=== PATIENT | female | born 1975 | race African-American/Black ===

== ENCOUNTER 2017-01-30 11:06 | Outpatient (CLI) | payer OTHER | END 2017-01-30 11:07 | disposition home or self-care (01) | LOC: WCC 11:06 | PROVIDERS: ATTEND Family Medicine | DX: L97.829 Non-pressure chronic ulcer of other part of left lower leg with unspecified severity (principal); L97.819 Non-pressure chronic ulcer of other part of right lower leg with unspecified severity | CPT/HCPCS: 36416; 97605 ==

== ENCOUNTER 2017-02-08 11:05 | Outpatient (CLI) | payer OTHER ==
[2017-02-08] MEDS ORDERED: Sodium Chloride 0.9% 15 ML NEB ONE (11:11)
== END 2017-02-08 11:06 | disposition home or self-care (01) ==
LOC: WCC 11:05
PROVIDERS: ATTEND Podiatrist Foot & Ankle Surgery
DX: L97.919 Non-pressure chronic ulcer of unspecified part of right lower leg with unspecified severity (principal); L97.929 Non-pressure chronic ulcer of unspecified part of left lower leg with unspecified severity
CPT/HCPCS: 36416; 97605; A4218

== ENCOUNTER 2017-02-10 10:30 | Outpatient (CLI) | payer OTHER ==
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
== END 2017-02-10 10:31 | disposition home or self-care (01) ==
LOC: WCC 10:30
PROVIDERS: ATTEND Podiatrist Foot & Ankle Surgery
DX: L97.419 Non-pressure chronic ulcer of right heel and midfoot with unspecified severity (principal); Z89.432 Acquired absence of left foot
CPT/HCPCS: 11042; 36416

== ENCOUNTER 2017-02-13 10:37 | Outpatient (CLI) | payer OTHER ==
[2017-02-13] MEDS ORDERED: Sodium Chloride 0.9% 15 ML NEB ONE (17:01)
== END 2017-02-13 10:38 | disposition home or self-care (01) ==
LOC: WCC 10:37
PROVIDERS: ATTEND Podiatrist Foot & Ankle Surgery
DX: L97.919 Non-pressure chronic ulcer of unspecified part of right lower leg with unspecified severity (principal); L97.929 Non-pressure chronic ulcer of unspecified part of left lower leg with unspecified severity
CPT/HCPCS: 36416; 97606; A4218

== ENCOUNTER 2017-02-15 10:46 | Outpatient (CLI) | payer OTHER ==
[2017-02-15] MEDS ORDERED: Sodium Chloride 0.9% 15 ML NEB ONE (16:23)
== END 2017-02-15 10:47 | disposition home or self-care (01) ==
LOC: WCC 10:46
PROVIDERS: ATTEND Podiatrist Foot & Ankle Surgery
DX: L97.829 Non-pressure chronic ulcer of other part of left lower leg with unspecified severity (principal); L97.819 Non-pressure chronic ulcer of other part of right lower leg with unspecified severity
CPT/HCPCS: 97606; A4218

== ENCOUNTER 2017-02-17 10:11 | Outpatient (CLI) | payer OTHER ==
--- NOTE | 2017-02-17 11:38 | PRG ---
DATE OF SERVICE: 02/17/2017 SUBJECTIVE: The patient follows up for bilateral foot wounds, status post left foot partial fifth r ay amputation, having a wound VAC on left foot 3 times a week at 125 mmHg negative pressure, continu ous therapy, doing Promogran to the right foot, although she presents today with the wound open to t he air. Denies any nausea, vomiting, fevers or chills. OBJECTIVE: Ulceration, left foot fifth met amputation site measuring 4.5 cm x 3.0 cm x 0.8 cm, gran ular wound base does not probe to bone. No periwound erythema or edema or warmth. Right foot plant ar ulceration measures 1 cm x 1.4 cm x 0.2 cm, 100% granular wound base. No periwound erythema, bety ma or warmth. Does not probe to deeper tissues or bone. ASSESSMENT: 1. 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 2. Diabetes with peripheral neuropathy. PLAN: 1. Full thickness debridement of both wounds utilizing dermal curet down to a bleeding granular wou nd base, debriding at the subcutaneous tissue layer removing all slough and biofilm from the wound b ases. 2. We are going to get her insurance authorization for EpiFix skin substitute. We will start hopef ully next week on the right foot and the left foot once we decide the wound VAC is no longer necessa ry. 3. We are going to reapply the wound VAC to the left foot, it will be changed 2 times before I see her next Monday. Continuous therapy at 125 mmHg. 4. We are going to do daily Promogran dressing right foot. Discussed with her not leaving this ope n to air at any time. 5. I also had a long discussion with her about her blood sugar control. Her blood sugars have been elevated every time she has come in here and I explained the risks with this and also the detriment to her healing potential if she does not get this under control. She seemed to understand and is g oing to try and work on that. She will follow up with me in 1 week.
[2017-02-17] MEDS ORDERED: Sodium Chloride 0.9% 15 ML NEB ONE (13:43)
== END 2017-02-17 10:12 | disposition home or self-care (01) ==
LOC: WCC 10:11
PROVIDERS: ATTEND Podiatrist Foot & Ankle Surgery
DX: T87.89 Other complications of amputation stump (principal); E11.621 Type 2 diabetes mellitus with foot ulcer; L97.429 Non-pressure chronic ulcer of left heel and midfoot with unspecified severity; L97.419 Non-pressure chronic ulcer of right heel and midfoot with unspecified severity; E11.51 Type 2 diabetes mellitus with diabetic peripheral angiopathy without gangrene
CPT/HCPCS: 11042; 11045; A4218

== ENCOUNTER 2017-02-20 10:43 | Outpatient (CLI) | payer OTHER | END 2017-02-20 10:44 | disposition home or self-care (01) | LOC: WCC 10:43 | PROVIDERS: ATTEND Podiatrist Foot & Ankle Surgery | DX: L97.919 Non-pressure chronic ulcer of unspecified part of right lower leg with unspecified severity (principal); L97.929 Non-pressure chronic ulcer of unspecified part of left lower leg with unspecified severity | CPT/HCPCS: 97605 ==

== ENCOUNTER 2017-02-22 10:42 | Outpatient (CLI) | payer OTHER ==
[2017-02-22] MEDS ORDERED: Lidocaine 2% Jelly 5 ML TUBE ONE (17:26)
== END 2017-02-22 10:43 | disposition home or self-care (01) ==
LOC: WCC 10:42
PROVIDERS: ATTEND Podiatrist Foot & Ankle Surgery
DX: L97.919 Non-pressure chronic ulcer of unspecified part of right lower leg with unspecified severity (principal); L97.929 Non-pressure chronic ulcer of unspecified part of left lower leg with unspecified severity
CPT/HCPCS: 97605

== ENCOUNTER 2017-02-24 10:17 | Outpatient (CLI) | payer OTHER ==
--- NOTE | 2017-02-24 11:06 | PRG ---
DATE OF SERVICE: 02/24/2017 SUBJECTIVE: This is a 41-year-old female returns today for followup of bilateral ulcerations and st atus post left fifth partial ray amputation. She has been doing wound VAC changes twice a week on t he left side and daily Promogran dressing changes on the right side. Denies any problems with wound VAC. She says she has been making some changes with her diet. Her blood sugar has improved, this morning was 102. PHYSICAL EXAMINATION: Ulceration, plantar right foot. A large amount of hyperkeratotic buildup surr ounding the wound which was removed. On removal the ulceration measures 1.4 cm x 1.9 cm x 0.1 cm of depth. It has 100% granular wound base. No periwound erythema, edema, or warmth or other signs of bacterial infection. Left foot fifth ray amputation site wound measures 5.5 cm x 3.2 cm x 0.7 cm, 100% granular wound base. There is some mild periwound maceration. No erythema, edema, or warmth o r other signs of bacterial infection. ASSESSMENT: 1. Non-pressure chronic ulceration of the plantar aspect of the right foot. 2. Status post left partial fifth ray amputation left open to heel secondary with wound VAC. 3. Diabetes with peripheral neuropathy. PLAN: 1. Full thickness debridement of both wounds utilizing dermal curet, removing all nonviable tissue down to the subcutaneous tissue layer. 2. We are going to continue with VAC application on the left foot 2 times a week, changes at 125 mm of continuous therapy. Right foot callus was also pared away from the periwound area. We will con tinue with daily Promogran dressing changes on this foot. 3. We discussed diabetic shoes and she is going to follow up with me in my main clinic so that we c an get this process started for her. 4. She will follow up with me in 2 weeks for reevaluation and debridement.
[2017-02-24] MEDS ORDERED: Sodium Chloride 0.9% 15 ML NEB ONE (17:29)
== END 2017-02-24 10:18 | disposition home or self-care (01) ==
LOC: WCC 10:17
PROVIDERS: ATTEND Podiatrist Foot & Ankle Surgery
DX: E11.621 Type 2 diabetes mellitus with foot ulcer (principal); L97.419 Non-pressure chronic ulcer of right heel and midfoot with unspecified severity; E11.42 Type 2 diabetes mellitus with diabetic polyneuropathy
CPT/HCPCS: 11042; 11045; A4218

== ENCOUNTER 2017-02-27 10:48 | Outpatient (CLI) | payer OTHER ==
[2017-02-27] MEDS ORDERED: Sodium Chloride 0.9% 15 ML NEB ONE (17:24)
== END 2017-02-27 10:49 | disposition home or self-care (01) ==
LOC: WCC 10:48
PROVIDERS: ATTEND Podiatrist Foot & Ankle Surgery
DX: L97.919 Non-pressure chronic ulcer of unspecified part of right lower leg with unspecified severity (principal); L97.929 Non-pressure chronic ulcer of unspecified part of left lower leg with unspecified severity
CPT/HCPCS: 97605; A4218

== ENCOUNTER 2017-03-02 10:42 | Outpatient (CLI) | payer OTHER | END 2017-03-02 10:43 | disposition home or self-care (01) | LOC: WCC 10:42 | PROVIDERS: ATTEND Podiatrist Foot & Ankle Surgery | DX: L97.929 Non-pressure chronic ulcer of unspecified part of left lower leg with unspecified severity (principal); L97.919 Non-pressure chronic ulcer of unspecified part of right lower leg with unspecified severity | CPT/HCPCS: 97605 ==

== ENCOUNTER 2017-03-10 10:00 | Outpatient (CLI) | payer OTHER ==
--- NOTE | 2017-03-06 15:57 | PRG ---
DATE OF SERVICE: 03/06/2017 SUBJECTIVE: Ms. Cristina Metcalf is followed by Dr. Erick Nj, [facility]. She is also followed Dr. Flor Maldonado for diabetes. It is reported that she had a hemoglobin A1c of 14 in November. For this reason, graft to her foot was denied by her insurance because of a poorly controlled diabetes. She has an appointment to see Dr. Maldonado next week. She is both on insulin and Januvia. She is status post amputation of her left fifth toe and metatarsal. She has an open granulating wound in h er left foot. There is no infection. She is having a wound VAC. 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 She is hoping to return to work on 03/17. I am seeing her down wound care and followup for amputation. There is no evidence of infection. The wound is granulating and healthy. Wound VAC is reapplied. Part of her granulated wound extends to the plantar aspect of her foot. I have talked to her about Dr. Nj's plans to possibly place a graft and informed her that her insurance will not cover that and thus her hemoglobin A1c reflects better control. The patient reports that her Ac cu-Cheks at home have been running [id number] or more. She states she ate leftovers last night account ing for her high Accu-Chek. I have told her that she continue the wound VAC until next week in a fe w days prior to her starting her job they can discontinue the wound VAC. I have written a prescript ion to repeat her hemoglobin A1c and basic metabolic profile today. This will help assess her as to whether she is ready for graft to facilitate healing of her left diabetic foot wound. The patient has an appointment to see me in 2 days and she was advised to change that appointment for about 2 we eks. We will see how her hemoglobin A1c and base met looks as far as whether it is likely she could have a graft to facilitate wound healing.
== END 2017-03-10 10:01 | disposition home or self-care (01) ==
LOC: WCC 10:00
PROVIDERS: ATTEND Podiatrist Foot & Ankle Surgery
DX: E11.621 Type 2 diabetes mellitus with foot ulcer (principal); E11.65 Type 2 diabetes mellitus with hyperglycemia; L97.529 Non-pressure chronic ulcer of other part of left foot with unspecified severity; Z79.4 Long term (current) use of insulin; Z89.422 Acquired absence of other left toe(s)
CPT/HCPCS: 97605

== ENCOUNTER 2017-03-17 08:12 | Outpatient (CLI) | payer OTHER ==
--- NOTE | 2017-03-17 09:07 | PRG ---
DATE OF SERVICE: 03/17/2017 SUBJECTIVE: This is a 41-year-old female returns today for followup of bilateral plantar foot ulcer ations, status post left partial fifth ray amputation. Removed the wound VAC last week, she started back to work and she has had no problems and started Promogran dressing changes, no nausea, vomitin g, fevers or chills. PHYSICAL EXAMINATION: Ulceration to the right foot has healed completely, paring away some hyperker atotic tissue, there was no underlying ulceration. Ulceration on the left foot measures 2.7 cm x 3. 9 cm x 0.2 cm deep, 100% granulation tissue. No periwound erythema, edema, or warmth or other signs of bacterial infection. ASSESSMENT: Non-pressure chronic ulceration to the left foot, status post left fifth digit amputati on. PLAN: Full thickness debridement utilizing dermal curette of the subcutaneous tissue layer down to a bleeding granular wound base, removing all biofilm and nonviable tissue from within the wound base . We will continue with daily Promogran dressing changes and she will follow up with me in 1 week.
[2017-03-17] MEDS ORDERED: Sodium Chloride 0.9% 15 ML NEB ONE (17:12)
== END 2017-03-17 08:13 | disposition home or self-care (01) ==
LOC: WCC 08:12
PROVIDERS: ATTEND Podiatrist Foot & Ankle Surgery
DX: L97.529 Non-pressure chronic ulcer of other part of left foot with unspecified severity (principal); Z89.422 Acquired absence of other left toe(s)
CPT/HCPCS: 11042; A4218

== ENCOUNTER 2017-03-24 08:18 | Outpatient (CLI) | payer OTHER ==
--- NOTE | 2017-03-24 09:32 | PRG ---
DATE OF SERVICE: 03/24/2017 SUBJECTIVE: This is a 41-year-old female returns today for followup left foot amputation site with ulceration. She has been doing well since last visit and has continued to do Promogran dressing nik nges daily and has had no problems with the wound. Denies nausea, vomiting, fevers or chills. PHYSICAL EXAMINATION: Right foot wound remains healed. Left foot ulceration over the 5th digit amp utation site measures 1.7 cm x 3.7 cm x 0.2 cm of depth, 90% granulation tissue, 10% slough, minimal drainage. Does not probe to deeper tendons or bone. No periwound erythema, edema or warmth. ASSESSMENT: 1. Non-pressure chronic ulceration to left foot, status post fifth digit amputation. 2. Type 2 diabetes with peripheral neuropathy. PLAN: 1. Full thickness debridement of the subcutaneous tissue layer removing all biofilm and nonviable t issue from the wound base down to a bleeding granular wound base with dermal curette. 2. Continue with Promogran dressing changes on a daily basis. 3. She will follow up in 1 week.
[2017-03-24] MEDS ORDERED: Sodium Chloride 0.9% 15 ML NEB ONE (10:57)
== END 2017-03-24 08:19 | disposition home or self-care (01) ==
LOC: WCC 08:18
PROVIDERS: ATTEND Podiatrist Foot & Ankle Surgery
DX: T81.89XD Other complications of procedures, not elsewhere classified, subsequent encounter (principal); L97.529 Non-pressure chronic ulcer of other part of left foot with unspecified severity; E11.42 Type 2 diabetes mellitus with diabetic polyneuropathy; Z89.422 Acquired absence of other left toe(s)
CPT/HCPCS: 11042; A4218

== ENCOUNTER 2017-03-31 08:05 | Outpatient (CLI) | payer OTHER ==
--- NOTE | 2017-03-31 09:55 | PRG ---
DATE OF SERVICE: 03/31/2017 SUBJECTIVE: This is a 41-year-old female returns today for followup left foot ulcerations, status po st left fifth partial ray amputation. She has been doing well since last visit, has been doing Promo gran, gauze and tape dressing changes daily. Denied nausea, vomiting, fevers or chills. PHYSICAL EXAMINATION: Ulceration left fifth toe stump measuring 1.7 cm x 2.9 cm x 0.2 cm of depth, 1 00% granular wound base. No periwound erythema, edema or warmth. No drainage. It does not probe to bone or tendon. ASSESSMENT: 1. Non-pressure chronic ulceration to left foot, status post left partial fifth ray amputation. 2. Diabetes with peripheral neuropathy. PLAN: 1. Full thickness debridement of the subcutaneous tissue layer down to a bleeding granular wound bas e, removing all biofilm and nonviable tissue from the wound. 2. We applied a Promogran, gauze and tape dressing which she will continue changing daily and follow up with me in 2 weeks.
[2017-03-31] MEDS ORDERED: Sodium Chloride 0.9% 15 ML NEB ONE (14:54)
== END 2017-03-31 08:06 | disposition home or self-care (01) ==
LOC: WCC 08:05
PROVIDERS: ATTEND Podiatrist Foot & Ankle Surgery
DX: E11.621 Type 2 diabetes mellitus with foot ulcer (principal); L97.529 Non-pressure chronic ulcer of other part of left foot with unspecified severity; E11.42 Type 2 diabetes mellitus with diabetic polyneuropathy; Z89.422 Acquired absence of other left toe(s)
CPT/HCPCS: A4218

== ENCOUNTER 2017-04-14 07:58 | Outpatient (CLI) | payer OTHER ==
--- NOTE | 2017-04-14 08:54 | PRG ---
DATE OF SERVICE: 04/14/2017 SUBJECTIVE: This is a 41-year-old female returns today status post left foot fifth amputation, doing well with Promogran, gauze and tape dressing changes on a daily basis. She thinks it has been impro ving. She has been wearing compression stocking for her swelling. Denies nausea, vomiting, fevers o r chills. PHYSICAL EXAMINATION: Ulceration left amputation site at the fifth metatarsal head area measuring 1. 5 cm x 1.5 cm x 0.1 cm in depth. There is a 90% granular base with 10% epithelium. Minimal drainage , no periwound erythema, edema or warmth. ASSESSMENT: 1. Non-pressure chronic ulceration to the left foot, improving in size. 2. Type 2 diabetes with peripheral neuropathy. PLAN: 1. Full thickness debridement of subcutaneous tissue layer down to a bleeding granular wound base, r emoving all biofilm and nonviable tissue from the wound base with dermal curet. The patient tolerate d the procedure well. 2. We will continue with Promogran, gauze and tape dressing changes as her wound continues to improv e. She will follow up with me in 1 week.
[2017-04-14] MEDS ORDERED: Sodium Chloride 0.9% 15 ML NEB ONE (17:18)
== END 2017-04-14 07:59 | disposition home or self-care (01) ==
LOC: WCC 07:58
PROVIDERS: ATTEND Podiatrist Foot & Ankle Surgery
DX: E11.621 Type 2 diabetes mellitus with foot ulcer (principal); L97.529 Non-pressure chronic ulcer of other part of left foot with unspecified severity; E11.42 Type 2 diabetes mellitus with diabetic polyneuropathy
CPT/HCPCS: 11042; A4218

== ENCOUNTER 2017-04-21 07:59 | Outpatient (CLI) | payer OTHER ==
--- NOTE | 2017-04-21 10:54 | PRG ---
DATE OF SERVICE: 04/21/2017 SUBJECTIVE: A 41-year-old female returns today for follow up ulceration left foot, fifth amputation. She has been doing well with Promogran and bandage, secondary gauze bandage changes. Denies nausea , vomiting, fever or chills. PHYSICAL EXAMINATION: Ulceration to the lateral aspect of the left forefoot measures 0.9 cm x 1.1 cm x 0.2 cm depth with 90% granulation tissue. No periwound erythema, edema or warmth. ASSESSMENT: Non-pressure chronic ulceration status post left fifth digit amputation. Continues to taty with conservative wound care. PLAN: 1. Full-thickness debridement of the subcutaneous tissue layer with dermal curet with removal of all biofilm and nonviable tissue from the wound base. 2. Continue with Promogran and secondary gauze and tape dressing changes on a daily basis and she wi ll follow up with me in 1 week.
== END 2017-04-21 08:00 | disposition home or self-care (01) ==
LOC: WCC 07:59
PROVIDERS: ATTEND Podiatrist Foot & Ankle Surgery
DX: L97.529 Non-pressure chronic ulcer of other part of left foot with unspecified severity (principal); Z89.422 Acquired absence of other left toe(s)

== ENCOUNTER 2017-12-29 11:50 | Emergency (ER) | payer BC ==
[2017-12-29] MEDS ORDERED: Ondansetron HCl/PF 4 MG/2 ML Vial ONE ×2 (12:13→14:29)
[2017-12-29 12:49] LABS: BHCG - Serum Negative (NEGATIVE); Pregs Control Background? CLEAR/WHITE (CLR/WHITE); Pregs Control Bar Appear? YES (CONTROL BAR)
[2017-12-29 12:58] LABS: Bilirubin Negative (Negative); Blood, Urine Large (Negative); Clarity Cloudy (Clear); Glucose, Urine (Dipstick) 500 mg/dL (Negative); Leukocyte Negative (Negative); Nitrite Negative (Negative); Protein, Urine (Dipstick) > or equal to 300 mg/dL (Neg-Trace); Urobilinogen 0.2 mg/dL (0.2-1.0)
[2017-12-29 12:58] LABS: CKMB 0.6 ng/mL (0-6.6); Hemoglobin 8.3 g/dL (12.0-16.0); Mean Corpuscular HGB CONC 31.3 g/dL (32.0-36.0); Mean Corpuscular Hemoglobin 22.9 pg (27.0-31.0); Mean Platelet Volume 6.9 fL (7.4-10.4); Platelet Count 391 thou/uL (130-400); RBC Distribution Width 13.1 % (11.5-14.5); Red Blood Cell (RBC) Count 3.64 mill/uL (4.20-5.40); Troponin I Less than 0.010 ng/mL (< 0.028); White Blood Cell (WBC) Count 12.4 thou/uL (4.8-10.8)
[2017-12-29 13:05] LABS: Bacteria/HPF Rare-Few HPF (None Seen); RBC/HPF GREATER THAN 50-TNTC HPF (0-3); Squamous Epithelial 0-3 HPF (0-3); WBC/HPF 0-3 HPF (0-3)
[2017-12-29 13:13] LABS: Hypochromia SLIGHT = 6-15 cells (100X) (0-5/hpf); MDiff Complete? YES; Microcytosis SLIGHT = 6-15 cells (100X) (0-5/hpf); PLT Morphology Comment Appears Adequate
--- NOTE | 2017-12-29 13:25 | RAD ---
FRONTAL VIEW CHEST: INDICATION: Nausea and vomiting. FINDINGS: The cardiac silhouette is accentuated by portable technique. There is hazy density of the inferior l eft chest. Subtle reticulonodular density is seen at the lateral upper mid right lung zone. There i s mild prominence of the pulmonary vasculature. IMPRESSION: 1. Accentuated cardiac silhouette and mild prominence of pulmonary vasculature may relate to fluid s tatus/edema. Correlate clinically. 2. Patchy density at the left lower lung zone which a subtle area of developing pneumonia is not exc luded. 3. Reticulonodularity at the lateral right upper to mid lung zone is present, nonspecific. This cou ld relate to an area of atypical infection or alternatively superimposed nodularity from the body wal l. Underlying solitary pulmonary nodule not entirely excluded. Followup imaging to confirm resoluti on is necessary, and should the finding persist, then CT thorax would be warranted. POS: DANIELA
[2017-12-29 13:30] LABS: ALT (SGPT) 18 U/L (8-55); AST (SGOT) 17 U/L (5-34); Albumin 3.5 g/dL (3.5-5.0); Alkaline Phosphatase 122 U/L (40-150); Anion Gap 16 mmol/L (10-20); BUN (Urea Nitrogen) 36 mg/dL (7.0-18.7); Bilirubin, Total 0.2 mg/dL (0.2-1.2); Calc. Creatinine Clearance 0 mL/min (70-130); Calcium 9.1 mg/dL (7.8-10.44); Carbon Dioxide 26 mmol/L (22-29); Chloride 97 mmol/L (98-107); Estimated GFR-MDRD 43; Globulin 5.2 g/dL (2.4-3.5); Glucose 341 mg/dL (70-105); Protein, Total 8.7 g/dL (6.0-8.3); Sodium 135 mmol/L (136-145)
[2017-12-29 13:59] LABS: Lipase 18 U/L (8-78)
[2017-12-29] MEDS ORDERED: Metoclopramide HCl 10 MG/2 ML VIAL ONE (16:46)
[2017-12-29] MEDS ORDERED: hydrALAZINE 20 MG/ML VIAL ONE (17:29)
== END 2017-12-29 18:20 | disposition home or self-care (01) ==
LOC: SCSER 11:50
DX: E11.65 Type 2 diabetes mellitus with hyperglycemia (principal); R11.2 Nausea with vomiting, unspecified; I10 Essential (primary) hypertension; J18.9 Pneumonia, unspecified organism; E78.5 Hyperlipidemia, unspecified; Z79.4 Long term (current) use of insulin; Z79.899 Other long term (current) drug therapy
CPT/HCPCS: 36416; 71045; 80053; 81003; 81015; 82010; 82553; 83690; 84484; 84703; 85025; 93005; 96361; 96365; 96375; 96376; J0360; J2405; J2765

== ENCOUNTER 2018-01-16 08:24 | Outpatient (CLI) | payer BC ==
--- NOTE | 2018-01-16 09:21 | ULT ---
RIGHT LOWER EXTREMITY VENOUS ULTRASOUND: History: Right lower extremity edema. Technique: Multiplanar grayscale and color doppler images were obtained in a right lower extremity ve nous ultrasound. Spectral analysis of the doppler waveforms were performed. FINDINGS: The right common femoral, profunda femoral vein, superficial femoral vein, and popliteal vein have a normal appearance without visible thrombus. The vessels demonstrate normal compression, flow, and aug mentation. The posterior tibial vein and greater saphenous vein are also patent. IMPRESSION: No evidence of right lower extremity DVT. POS: JOSE RAFAEL
== END 2018-01-16 08:25 | disposition home or self-care (01) ==
LOC: SCSULT 08:24
PROVIDERS: ATTEND Podiatrist Foot & Ankle Surgery
DX: I82.401 Acute embolism and thrombosis of unspecified deep veins of right lower extremity (principal)

== ENCOUNTER 2018-03-16 10:30 | Outpatient (CLI) | payer BC ==
--- NOTE | 2018-03-16 12:13 | PRG ---
DATE OF SERVICE: 03/16/2018 SUBJECTIVE: This is a 42-year-old female, who returns to our clinic today for a wound on her right l ateral foot and I saw her about 2 months ago. She had developed acute Charcot neuroarthropathy. I r eferred her to a surgeon in the [facility], for evaluation and surgical intervention as antonio wasserman. This was a surgeon that was recommended to me due to his experience with the Charcot recons tructions. She states that she went down to there, she was admitted to the hospital, and an incision and drainage was performed and she had an external fixator placed upon her foot. The external fixat or was then placed on 01/21/2018, and she believes it was removed on 02/23/2018. After the removal, she had a large wound on the lateral aspect of her right foot from the incision and drainage site. H er foot has turned inverted and she has been doing gauze dressing changes. She did have some wound V AC at one time, but that was discontinued and she is not certain when. She has since come back in an d re-seen her primary care doctor, who has also sent in a referral for her to see Dr. Baxter, orthop edic surgeon, here in town. She has an appointment with him on 04/02/2018. She explained that the s urgeon in the [facility] told her that now she just needed to heal up and should keep in touch, and follow up maybe about every 1 month or so, but he did not indicate any future plans for her. Today, she denies any nausea, vomiting, fevers, or chills. She is in a splint and boot and had been trying to stay off of the foot as much as possible with crutches. PHYSICAL EXAMINATION: The leg is still grossly edematous. There is an extremely large lateral hind foot wound, measuring 6 cm x 11.5 x 6 cm of depth, 50% slough, 50% granulation tissue, large amounts of serosanguineous drainage. No malodor. There are multiple incisional wounds on the leg with sutur es in place from the fixator site pin placements. Foot rests in an inverted position, although this is extremely flexible. ASSESSMENT: 1. Charcot neurarthropathy. 2. A full-thickness non-pressure chronic ulceration to the right lateral hindfoot, status post incis ion and drainage and external fixator application. PLAN: 1. For the patient's wound, we are going to begin by re-applying the wound VAC 3 times a week. We w ill send orders to her [facility] [employer] to restart this application. We are going to continue to see her on a weekly basis to reevaluate the wound and determine what a course of treatment will be ne cessary. 2. I am a little unclear as to what the end plan is for her Charcot foot. I am going to get in cont act with her surgeon, Dr. Slaughter, and determine what if any long-term plan there is for that. I als o recommend that she continue to keep her appointment with Dr. Baxter to see what his recommendation s would be. 3. I explained to the patient that as the foot stands at this point in time, it is nonfunctional and it may require an amputation in the future. There is also the possibility for long-term bracing wit h a Charcot restrictive orthotic walker if we can get this wound to heal, so that is where we will be gin and see where we go from here. She will follow up with me in 1 week.
[2018-03-16] MEDS ORDERED: Sodium Chloride 0.9% 15 ML NEB ONE (15:39)
--- NOTE | 2018-03-23 12:25 | PRG ---
DATE OF SERVICE: 03/23/2018 SUBJECTIVE: This is a 42-year-old female follows up for right foot wound. She is status post incisi on and drainage on this foot and the beginnings of a Charcot reconstruction. My partner, Dr. Sal graham d been in contact with her surgeon, Dr. Slaughter last week and determined that he was wanting this wou nd to heal before he can do his definitive procedure, so we are going to begin working on that to get her ready for that reconstructive procedure. She did get the wound VAC placed starting on Monday an d has had no problems with it since then. PHYSICAL EXAMINATION: Large wound on the right lateral foot measuring 9 cm x 10.6 cm x 7 cm. It is 90% granulation tissue, 10% slough. There is some serosanguineous drainage. No malodor. Multiple p in sites on the lower leg with sutures intact and have healed. No signs of bacterial infection. ASSESSMENT: Non-pressure chronic ulceration to the right lateral foot, status post incision and liliana jovel of this foot. PLAN: 1. All sutures were removed today. 2. Full thickness debridement of the subcutaneous tissue removing nonviable tissue and slough from t he wound base down to a bleeding granular wound base. 3. We are going to continue with 3 times a week, dressing changes for the wound VAC. It is going to be set at 150 mm of negative pressure. We will use a white foam versa foam in the tunneled areas an d then black GranuFoam on top. She will also be placed into a 2 layer compression wrap over the top of all this in order to support the foot. She will be placed into an immobilization boot to help sup port the foot and reduce motion and the patient will follow up with me in 1 week or sooner should she have problems before that time.
== END 2018-03-16 10:31 | disposition home or self-care (01) ==
LOC: WCC 10:30
PROVIDERS: ATTEND Podiatrist Foot & Ankle Surgery
DX: T81.89XD Other complications of procedures, not elsewhere classified, subsequent encounter (principal); L97.519 Non-pressure chronic ulcer of other part of right foot with unspecified severity; M14.671 Charcot's joint, right ankle and foot
CPT/HCPCS: 97602; A4218

== ENCOUNTER 2018-03-23 11:14 | Outpatient (CLI) | payer BC ==
[2018-03-23] MEDS ORDERED: Sodium Chloride 0.9% 15 ML NEB ONE (15:42)
== END 2018-03-23 11:15 | disposition home or self-care (01) ==
LOC: WCC 11:14
PROVIDERS: ATTEND Podiatrist Foot & Ankle Surgery
DX: S91.001D Unspecified open wound, right ankle, subsequent encounter (principal)
CPT/HCPCS: 11042; 11045; A4218

== ENCOUNTER 2018-03-30 11:47 | Outpatient (CLI) | payer BC ==
--- NOTE | 2018-03-30 13:05 | PRG ---
DATE OF SERVICE: 03/30/2018 SUBJECTIVE: This is a 42-year-old female returns today for followup right lateral ankle wound, statu s post incision and drainage. The patient has done well over the last week. She states she has been having wound VAC changes on a regular basis. No acute events since last visit. I did discussed wit h her immobilization, it appears that she is not wearing it respiratory tech at this point. PHYSICAL EXAMINATION: Right lateral wound, large, measuring 9.5 cm x 9 cm x 8.5 cm, 90% granulation tissue, 10% slough. There is the lateral process of the talus present within the wound. Bone appear s hard, white, glistening and healthy at this time. ASSESSMENT: Non-pressure chronic ulceration to the right lateral hindfoot and ankle, status post inc ision and drainage. PLAN: Full thickness debridement of the subcutaneous tissue layers removing all nonviable tissue and biofilm from the wound base down to bleeding granular wound base. The patient tolerated the procedu re well. I am going to continue with wound VAC changes 3 times a week, using the white foam deep int o the tunneling and GranuFoam on the surface. She will follow up with me in 2 weeks after the kelliida y. I am going to contact and discussed with him more definitive long-term plan for Rehan hernadez as well.
[2018-03-30] MEDS ORDERED: Sodium Chloride 0.9% 15 ML NEB ONE (18:38)
== END 2018-03-30 11:48 | disposition home or self-care (01) ==
LOC: WCC 11:47
PROVIDERS: ATTEND Family Medicine
DX: L97.519 Non-pressure chronic ulcer of other part of right foot with unspecified severity (principal); L97.319 Non-pressure chronic ulcer of right ankle with unspecified severity; Z98.890 Other specified postprocedural states
CPT/HCPCS: 11042; 11045; A4218

== ENCOUNTER 2025-01-13 09:25 | Inpatient (IN) | payer BC ==
[2025-01-13] MEDS ORDERED: Heparin 10,000 UNITS/ 10 ML VIAL ONE (11:01)
[2025-01-13] MEDS ORDERED: INSULIN REGULAR IN 0.9 % NACL 100 ML IVPB SCH (11:15)
[2025-01-13 11:57] LABS: Anion Gap 16 mmol/L (10-20); BUN (Urea Nitrogen) 50 mg/dL (7.0-18.7); Calc. Creatinine Clearance 0 mL/min (70-130); Calcium 8.2 mg/dL (7.8-10.44); Carbon Dioxide 17 mmol/L (22-29); Chloride 114 mmol/L (98-107); Glucose 218 mg/dL (70-105); Potassium 5.0 mmol/L (3.5-5.1); Sodium 142 mmol/L (136-145)
[2025-01-13] MEDS: Losartan 25 MG TAB PO SCH (12:16)
[2025-01-13] MEDS: Ondansetron PF 4 MG/2 ML Vial IVP PRN (12:17)
[2025-01-13 12:29] LABS: HBSAB Concentration Less than 8.00 mIU/mL; Hep B Core Total Ab NONREACTIVE (NonReactive); Hep B Core Total Index 0.21 S/CO (0-0.79); Hep B Surf Ag NONREACTIVE S/CO (NonReactive); Hep C IgG Ab NONREACTIVE S/CO (NonReactive); Hep C Index 0.11 S/CO (0-0.79)
[2025-01-13] MEDS: niCARdipine 25 MG in Sodium Chloride 0.9% 250 ML 250 ML IVPB SCH (12:37)
[2025-01-13] MEDS: Tuberculin PPD 0.1 ML SYRINGE (10 TEST VIAL) I-DERMAL SCH (14:18)
[2025-01-13] MEDS ORDERED: Glucagon 1 MG/ML KIT IM PRN (15:15)
[2025-01-13] MEDS ORDERED: Dextrose 50% Abboject 50 ML SYRINGE SLOW IVP PRN (15:15)
[2025-01-13] MEDS: Insulin Glargine 30 UNITS/0.3 ML VIAL SC SCH ×2 (16:19→20:12)
[2025-01-13 17:25] LABS: Cocaine Metabolite Screen Negative (Negative); THC/Cannabinoid Screen Negative (Negative); Tricyclic Screen Negative (Negative)
[2025-01-13] MEDS ORDERED: niCARdipine 50 MG, Admixture Fee 1 EACH in Sodium Chloride 0.9% 250 ML 230 ML IV SCH (19:00)
[2025-01-13] MEDS ORDERED: cloNIDine 0.1 MG TAB PO PRN (19:17)
[2025-01-13] MEDS: Metoclopramide HCl 10 MG (2 mL) VIAL IVP PRN (19:40)
[2025-01-13] MEDS: cloNIDine 0.1 MG TAB PO PRN (20:14)
[2025-01-13 20:52] LABS: Magnesium 1.7 mg/dL (1.6-2.6)
[2025-01-14 04:44] LABS: #Basophils 0.04 10x3/uL (0.0-0.2); #Eosinophils Less than 0.03 10x3/uL (0.0-0.7); #Monocytes 1.04 10x3/uL (0.11-0.59); #Neutrophils 14.99 10x3/uL (1.40-6.50); %Basophils 0.2 % (0.0-1.0); %Eosinophils 0.1 % (0.0-10.0); %Lymphocytes 13.6 % (21.0-51.0); %Monocytes 5.5 % (0.0-10.0); %Neutrophils 79.7 % (42.0-75.0); Hematocrit 22.4 % (36.0-47.0); Hemoglobin 6.6 g/dL (12.0-16.0); Mean Corpuscular Hemoglobin 25.5 pg (27.0-31.0); Mean Corpuscular Volume 86.5 fL (78.0-98.0); Platelet Count 296 10x3/uL (130-400); Red Blood Cell (RBC) Count 2.59 mill/uL (4.20-5.40); White Blood Cell (WBC) Count 18.83 10x3/uL (4.8-10.8)
[2025-01-14 05:03] LABS: ALT (SGPT) Less than 7 U/L (Less than 34); AST (SGOT) 10 U/L (11-34); Albumin 2.5 g/dL (3.1-4.5); Alkaline Phosphatase 94 U/L (40-110); Anion Gap 16 mmol/L (10-20); BUN (Urea Nitrogen) 52 mg/dL (7.0-18.7); Bilirubin, Total 0.2 mg/dL (0.3-1.2); Calc. Creatinine Clearance 30 mL/min (70-130); Calcium 7.7 mg/dL (7.8-10.44); Carbon Dioxide 17 mmol/L (22-29); Chloride 114 mmol/L (98-107); Globulin 4.5 g/dL (2.4-3.5); Glucose 164 mg/dL (70-105); Potassium 5.0 mmol/L (3.5-5.1); Sodium 142 mmol/L (136-145)
[2025-01-14] MEDS: Calcitriol 0.25 MCG CAP PO SCH (07:44)
[2025-01-14] MEDS ORDERED: hydrALAZINE 10 MG TAB PO SCH (09:00)
[2025-01-14] MEDS: Ergocalciferol 1.25 MG(50,000 UNITS) CAP PO SCH (09:41)
[2025-01-14] MEDS: Losartan 25 MG TAB PO SCH (09:41)
[2025-01-14] MEDS: DOLUTEGRAVIR PO SCH (09:42)
[2025-01-14] MEDS: RILPIVIRINE PO SCH (09:42)
[2025-01-14] MEDS ORDERED: Heparin 10,000 UNITS/ 10 ML VIAL ONE (09:47)
[2025-01-14] MEDS ORDERED: EPOETIN ALFA-EPBX (ESRD) 10,000 UNITS/ML VIAL FS SCH (11:00)
[2025-01-14] MEDS: EPOETIN ALFA-EPBX (ESRD) 10,000 UNITS/ML VIAL SC SCH (12:23)
[2025-01-14] MEDS: Famotidine 20 MG TAB PO SCH (22:21)
[2025-01-15 05:02] LABS: #Basophils 0.04 10x3/uL (0.0-0.2); #Eosinophils 0.29 10x3/uL (0.0-0.7); #Monocytes 1.18 10x3/uL (0.11-0.59); #Neutrophils 7.72 10x3/uL (1.40-6.50); %Basophils 0.3 % (0.0-1.0); %Eosinophils 2.3 % (0.0-10.0); %Lymphocytes 27.7 % (21.0-51.0); %Monocytes 9.2 % (0.0-10.0); %Neutrophils 59.9 % (42.0-75.0); Hematocrit 24.9 % (36.0-47.0); Hemoglobin 7.4 g/dL (12.0-16.0); Mean Corpuscular Hemoglobin 25.4 pg (27.0-31.0); Mean Corpuscular Volume 85.6 fL (78.0-98.0); Platelet Count 253 10x3/uL (130-400); Red Blood Cell (RBC) Count 2.91 mill/uL (4.20-5.40); White Blood Cell (WBC) Count 12.88 10x3/uL (4.8-10.8)
[2025-01-15 05:22] LABS: ALT (SGPT) Less than 7 U/L (Less than 34); AST (SGOT) 12 U/L (11-34); Albumin 2.6 g/dL (3.1-4.5); Alkaline Phosphatase 88 U/L (40-110); Anion Gap 17 mmol/L (10-20); BUN (Urea Nitrogen) 39 mg/dL (7.0-18.7); Bilirubin, Total 0.1 mg/dL (0.3-1.2); Calc. Creatinine Clearance 31 mL/min (70-130); Calcium 7.5 mg/dL (7.8-10.44); Carbon Dioxide 21 mmol/L (22-29); Chloride 107 mmol/L (98-107); Globulin 3.9 g/dL (2.4-3.5); Glucose 139 mg/dL (70-105); Magnesium 1.8 mg/dL (1.6-2.6); Potassium 4.4 mmol/L (3.5-5.1); Sodium 141 mmol/L (136-145)
[2025-01-15] MEDS ORDERED: Heparin 10,000 UNITS/ 10 ML VIAL ONE (09:50)
[2025-01-15] MEDS: Carvedilol 6.25 MG TAB PO SCH ×2 (11:12→16:32)
[2025-01-15] MEDS ORDERED: niCARdipine 40MG In NaCl 40 MG/200 ML BAG IVPB SCH (13:30)
[2025-01-15] MEDS: PNEUMOC 20-VAL CONJ-DIP CRM/PF 0.5 ML SYRINGE IM ONE (13:43)
[2025-01-15 14:26] VITALS: BMI 45.8
[2025-01-15] MEDS: Losartan 25 MG TAB PO SCH (14:27)
[2025-01-15] MEDS: hydrALAZINE 20 MG/ML VIAL SLOW IVP PRN (14:58)
[2025-01-15 15:14] LABS: %CD4 (Helper/Inducer) 35.0 % (30.8-58.5); Absolute CD4 980 /uL (359-1519); Lymphocytes/Gated Cell Count 2.8 x10E3/uL (0.7-3.1); Total Lymphocyte 15 % (Not Estab.); WBC Total Count 18.7 x10E3/uL (3.4-10.8)
[2025-01-15] MEDS: Ondansetron PF 4 MG/2 ML Vial IVP SCH (16:32)
[2025-01-15] MEDS: Metoclopramide HCl 10 MG (2 mL) VIAL IVP SCH ×2 (16:32→21:02)
[2025-01-15] MEDS: niCARdipine 50 MG, Admixture Fee 1 EACH in Sodium Chloride 0.9% 250 ML 230 ML IV SCH (17:20)
[2025-01-15 17:47] LABS: Anion Gap 16 mmol/L (10-20); BUN (Urea Nitrogen) 37 mg/dL (7.0-18.7); Calc. Creatinine Clearance 36 mL/min (70-130); Calcium 8.1 mg/dL (7.8-10.44); Carbon Dioxide 20 mmol/L (22-29); Chloride 107 mmol/L (98-107); Glucose 283 mg/dL (70-105); Potassium 5.1 mmol/L (3.5-5.1); Sodium 138 mmol/L (136-145)
[2025-01-15] MEDS: cloNIDine 0.1 MG TAB PO SCH (21:02)
[2025-01-16] MEDS: Ondansetron PF 4 MG/2 ML Vial IVP SCH (00:10)
[2025-01-16] MEDS: niCARdipine 25 MG in Sodium Chloride 0.9% 250 ML 250 ML IVPB SCH (00:50)
[2025-01-16 05:38] LABS: #Basophils 0.05 10x3/uL (0.0-0.2); #Eosinophils 0.14 10x3/uL (0.0-0.7); #Monocytes 1.56 10x3/uL (0.11-0.59); #Neutrophils 11.21 10x3/uL (1.40-6.50); %Basophils 0.3 % (0.0-1.0); %Eosinophils 0.9 % (0.0-10.0); %Lymphocytes 18.4 % (21.0-51.0); %Monocytes 9.7 % (0.0-10.0); %Neutrophils 69.9 % (42.0-75.0); Hematocrit 27.2 % (36.0-47.0); Hemoglobin 8.3 g/dL (12.0-16.0); Mean Corpuscular Hemoglobin 26.3 pg (27.0-31.0); Mean Corpuscular Volume 86.1 fL (78.0-98.0); Platelet Count 250 10x3/uL (130-400); Red Blood Cell (RBC) Count 3.16 mill/uL (4.20-5.40); White Blood Cell (WBC) Count 16.04 10x3/uL (4.8-10.8)
[2025-01-16 06:05] LABS: Anion Gap 15 mmol/L (10-20); BUN (Urea Nitrogen) 39 mg/dL (7.0-18.7); Calc. Creatinine Clearance 34 mL/min (70-130); Calcium 7.6 mg/dL (7.8-10.44); Carbon Dioxide 21 mmol/L (22-29); Chloride 107 mmol/L (98-107); Glucose 87 mg/dL (70-105); Potassium 4.3 mmol/L (3.5-5.1); Sodium 139 mmol/L (136-145)
[2025-01-16 06:22] VITALS: BMI 45.2
[2025-01-16] MEDS: Dextrose 50% Abboject 50 ML SYRINGE SLOW IVP PRN (08:23)
[2025-01-16] MEDS ORDERED: Heparin 10,000 UNITS/ 10 ML VIAL ONE ×2 (09:05→12:21)
[2025-01-16] MEDS: Losartan 25 MG TAB PO SCH (09:11)
[2025-01-16] MEDS: READ PPD TEST SITE PO SCH (10:47)
[2025-01-16] MEDS ORDERED: Bupivacaine 0.25% HCL 30 ML VIAL ONE (12:21)
[2025-01-16] MEDS ORDERED: Famotidine/PF 20 mg/2ml Vial ONE (14:16)
[2025-01-16] MEDS ORDERED: CEFAZOLIN 2 GM VIAL ONE (14:16)
[2025-01-16] MEDS ORDERED: PROPOFOL 40 ML ONE (14:26)
[2025-01-16] MEDS ORDERED: fentaNYL PF 100 MCG/2 ML SYRINGE ONE (14:26)
[2025-01-16] MEDS ORDERED: Lidocaine 1% PF 5 ML VIAL ONE (14:27)
[2025-01-16] MEDS ORDERED: PHENYLEPHRINE-NS 100 MCG/ML 10 ML SYRINGE ONE (15:05)
[2025-01-16] MEDS ORDERED: Ondansetron PF 4 MG/2 ML Vial ONE (15:05)
[2025-01-16 16:39] LABS: HIV-1 Quantitative, RNA PCR <20 copies/mL (.)
[2025-01-16] MEDS: Benzonatate 100 MG CAP PO PRN (20:44)
[2025-01-16] MEDS: Heparin 5,000 UNITS/ML VIAL SC SCH (21:11)
[2025-01-17 02:45] LABS: #Basophils Less than 0.03 10x3/uL (0.0-0.2); #Eosinophils Less than 0.03 10x3/uL (0.0-0.7); #Monocytes 0.49 10x3/uL (0.11-0.59); #Neutrophils 13.62 10x3/uL (1.40-6.50); %Basophils 0.1 % (0.0-1.0); %Eosinophils 0.0 % (0.0-10.0); %Lymphocytes 6.1 % (21.0-51.0); %Monocytes 3.2 % (0.0-10.0); %Neutrophils 89.8 % (42.0-75.0); Hematocrit 29.7 % (36.0-47.0); Hemoglobin 8.9 g/dL (12.0-16.0); Mean Corpuscular Hemoglobin 26.3 pg (27.0-31.0); Mean Corpuscular Volume 87.6 fL (78.0-98.0); Platelet Count 222 10x3/uL (130-400); Red Blood Cell (RBC) Count 3.39 mill/uL (4.20-5.40); White Blood Cell (WBC) Count 15.18 10x3/uL (4.8-10.8)
[2025-01-17 03:32] LABS: Anion Gap 17 mmol/L (10-20); BUN (Urea Nitrogen) 32 mg/dL (7.0-18.7); Calc. Creatinine Clearance 50 mL/min (70-130); Calcium 7.7 mg/dL (7.8-10.44); Carbon Dioxide 19 mmol/L (22-29); Chloride 97 mmol/L (98-107); Glucose 620 mg/dL (70-105); Potassium 5.0 mmol/L (3.5-5.1); Sodium 128 mmol/L (136-145)
[2025-01-17 04:35] VITALS: TEMP 98.1
[2025-01-17 08:20] VITALS: BP 172/84
[2025-01-17 12:09] LABS: Anion Gap 16 mmol/L (10-20); BUN (Urea Nitrogen) 39 mg/dL (7.0-18.7); Calc. Creatinine Clearance 46 mL/min (70-130); Calcium 8.0 mg/dL (7.8-10.44); Carbon Dioxide 25 mmol/L (22-29); Chloride 96 mmol/L (98-107); Glucose 210 mg/dL (70-105); Potassium 4.4 mmol/L (3.5-5.1); Sodium 133 mmol/L (136-145)
[2025-01-20] MEDS ORDERED: Ergocalciferol 1.25 MG(50,000 UNITS) CAP PO SCH (12:00)
== END 2025-01-17 12:50 | disposition home or self-care (01) | DRG 673 ==
LOC: UNDOADMIN 09:25 → CCU 09:25 → T4-A 01-14 18:26 → CCU 01-15 15:29 → T4-B 01-16 15:35
PROVIDERS: ADMIT Internal Medicine; ATTEND Internal Medicine
PROC: 06HY33Z Insertion of Infusion Device into Lower Vein, Percutaneous Approach (ICD-10-PCS; 2025-01-13)
PROC: 30233N1 Transfusion of Nonautologous Red Blood Cells into Peripheral Vein, Percutaneous Approach (ICD-10-PCS; 2025-01-14)
PROC: 3E0234Z Introduction of Serum, Toxoid and Vaccine into Muscle, Percutaneous Approach (ICD-10-PCS; 2025-01-15)
PROC: 0JH63XZ Insertion of Tunneled Vascular Access Device into Chest Subcutaneous Tissue and Fascia, Percutaneous Approach (ICD-10-PCS; principal; 2025-01-16)
PROC: B518ZZA Fluoroscopy of Superior Vena Cava, Guidance (ICD-10-PCS; 2025-01-16)
PROC: 02HV33Z Insertion of Infusion Device into Superior Vena Cava, Percutaneous Approach (ICD-10-PCS; 2025-01-16)
PROC: 3E03329 Introduction of Other Anti-infective into Peripheral Vein, Percutaneous Approach (ICD-10-PCS; 2025-01-16)
PROC: 3E033XZ Introduction of Vasopressor into Peripheral Vein, Percutaneous Approach (ICD-10-PCS; 2025-01-16)
DX: N17.9 Acute kidney failure, unspecified (principal); E11.10 Type 2 diabetes mellitus with ketoacidosis without coma; I12.0 Hypertensive chronic kidney disease with stage 5 chronic kidney disease or end stage renal disease; I16.1 Hypertensive emergency; Z68.42 Body mass index [BMI] 45.0-49.9, adult; N25.81 Secondary hyperparathyroidism of renal origin; N18.6 End stage renal disease; Z23 Encounter for immunization; I16.0 Hypertensive urgency; E11.22 Type 2 diabetes mellitus with diabetic chronic kidney disease; Z21 Asymptomatic human immunodeficiency virus [HIV] infection status; E66.01 Morbid (severe) obesity due to excess calories; E55.9 Vitamin D deficiency, unspecified; Z98.891 History of uterine scar from previous surgery; Z89.422 Acquired absence of other left toe(s); E21.3 Hyperparathyroidism, unspecified; Z98.890 Other specified postprocedural states; D63.1 Anemia in chronic kidney disease; Z79.899 Other long term (current) drug therapy; Z79.4 Long term (current) use of insulin; E78.00 Pure hypercholesterolemia, unspecified; Z89.611 Acquired absence of right leg above knee; R94.31 Abnormal electrocardiogram [ECG] [EKG]; E87.5 Hyperkalemia; K80.20 Calculus of gallbladder without cholecystitis without obstruction
CPT/HCPCS: 36415; 36416; 36430; 71045; 76705; 80048; 80053; 80306; 80307; 81001; 82010; 82306; 82728; 82805; 83036; 83605; 83690; 83735; 83880; 83970; 84100; 84443; 84484; 84703; 85025; 86361; 86580; 86704; 86706; 86803; 86850; 86900; 86901; 87040; 87340; 87536; 93005; 93010; 96372; 96374; 96375; 96376; 97139; A6258; C1752; J0169; J0360; J0665; J1100; J1308; J1644; J1815; J2270; J2405; J2704; J2765; J3010; J3480; J7050; J7999; P9016; Q5105

== ENCOUNTER 2025-04-11 02:48 | Observation (INO) | payer BC ==
[2025-04-11] MEDS ORDERED: Calcium Carbonate 500 MG ChewTAB PO PRN (03:22)
[2025-04-11] MEDS ORDERED: Acetaminophen 325 MG TAB PO PRN (03:22)
[2025-04-11] MEDS ORDERED: Ondansetron PF 4 MG/2 ML Vial IVP PRN (03:22)
[2025-04-11] MEDS ORDERED: Glucagon 1 MG/ML KIT IM PRN (03:25)
[2025-04-11] MEDS ORDERED: Dextrose 50% Abboject 50 ML SYRINGE SLOW IVP PRN (03:25)
[2025-04-11 03:55] VITALS: BMI 46.5
[2025-04-11 04:30] LABS: #Basophils 0.03 10x3/uL (0.0-0.2); #Eosinophils 0.30 10x3/uL (0.0-0.7); #Monocytes 0.91 10x3/uL (0.11-0.59); #Neutrophils 6.10 10x3/uL (1.40-6.50); %Basophils 0.3 % (0.0-1.0); %Eosinophils 3.0 % (0.0-10.0); %Lymphocytes 24.7 % (21.0-51.0); %Monocytes 9.2 % (0.0-10.0); %Neutrophils 62.1 % (42.0-75.0); Hematocrit 31.6 % (36.0-47.0); Hemoglobin 9.4 g/dL (12.0-16.0); Mean Corpuscular Hemoglobin 25.0 pg (27.0-31.0); Mean Corpuscular Volume 84.0 fL (78.0-98.0); Platelet Count 243 10x3/uL (130-400); Red Blood Cell (RBC) Count 3.76 mill/uL (4.20-5.40); White Blood Cell (WBC) Count 9.84 10x3/uL (4.8-10.8)
[2025-04-11 04:47] LABS: ALT (SGPT) Less than 7 U/L (Less than 34); AST (SGOT) 11 U/L (11-34); Albumin 3.1 g/dL (3.1-4.5); Alkaline Phosphatase 81 U/L (40-110); Anion Gap 21 mmol/L (10-20); BUN (Urea Nitrogen) 48 mg/dL (7.0-18.7); Bilirubin, Total 0.2 mg/dL (0.3-1.2); Calc. Creatinine Clearance 32 mL/min (70-130); Calcium 8.9 mg/dL (7.8-10.44); Carbon Dioxide 23 mmol/L (22-29); Chloride 98 mmol/L (98-107); Globulin 4.3 g/dL (2.4-3.5); Glucose 192 mg/dL (70-105); Potassium 3.7 mmol/L (3.5-5.1); Sodium 138 mmol/L (136-145)
[2025-04-11 08:02] VITALS: TEMP 98.4
[2025-04-11] MEDS: Carvedilol 6.25 MG TAB PO SCH (09:44)
[2025-04-11] MEDS: cloNIDine 0.1 MG TAB PO SCH (09:44)
[2025-04-11] MEDS: Calcitriol 0.25 MCG CAP PO SCH (09:44)
[2025-04-11] MEDS: NIFEdipine XL 60 MG ER.TAB PO SCH (09:44)
[2025-04-11] MEDS: Ergocalciferol 1.25 MG(50,000 UNITS) CAP PO SCH (09:44)
[2025-04-11] MEDS: Insulin Glargine 30 UNITS/0.3 ML VIAL SC SCH (09:45)
[2025-04-11] MEDS: HumuLIN 70/30 100 Unit/ml 10 ml Vial SC SCH (09:57)
[2025-04-11 11:27] VITALS: BP 158/86
[2025-04-12] MEDS ORDERED: EPOETIN ALFA-EPBX (ESRD) 10,000 UNITS/ML VIAL IVP SCH (09:00)
== END 2025-04-11 14:45 | disposition home or self-care (01) ==
LOC: 2SE 02:56
PROVIDERS: ADMIT Student in an Organized Health Care Education/Training Program; ATTEND Hospitalist
DX: R56.9 Unspecified convulsions (principal); I12.0 Hypertensive chronic kidney disease with stage 5 chronic kidney disease or end stage renal disease; N18.6 End stage renal disease; E11.22 Type 2 diabetes mellitus with diabetic chronic kidney disease; B20 Human immunodeficiency virus [HIV] disease; Z99.2 Dependence on renal dialysis; Z89.511 Acquired absence of right leg below knee; Z88.5 Allergy status to narcotic agent; Z79.4 Long term (current) use of insulin; Z79.899 Other long term (current) drug therapy
CPT/HCPCS: 36415; 36416; 70450; 71045; 80053; 80306; 80307; 81001; 82550; 83605; 84146; 84703; 85025; 93005; G0378; J1815

== ENCOUNTER 2025-05-05 05:07 | Emergency (ER) | payer BC ==
[2025-05-05 06:12] LABS: #Basophils 0.05 10x3/uL (0.0-0.2); #Eosinophils Less than 0.03 10x3/uL (0.0-0.7); #Monocytes 0.53 10x3/uL (0.11-0.59); #Neutrophils 13.12 10x3/uL (1.40-6.50); %Basophils 0.3 % (0.0-1.0); %Eosinophils 0.0 % (0.0-10.0); %Lymphocytes 7.4 % (21.0-51.0); %Monocytes 3.5 % (0.0-10.0); %Neutrophils 87.7 % (42.0-75.0); Hematocrit 34.7 % (36.0-47.0); Hemoglobin 10.5 g/dL (12.0-16.0); Mean Corpuscular Hemoglobin 24.8 pg (27.0-31.0); Mean Corpuscular Volume 82.0 fL (78.0-98.0); Platelet Count 366 10x3/uL (130-400); Red Blood Cell (RBC) Count 4.23 mill/uL (4.20-5.40); White Blood Cell (WBC) Count 14.97 10x3/uL (4.8-10.8)
[2025-05-05 06:33] LABS: ALT (SGPT) Less than 7 U/L (Less than 34); AST (SGOT) 13 U/L (11-34); Albumin 3.2 g/dL (3.1-4.5); Alkaline Phosphatase 104 U/L (40-110); Anion Gap 22 mmol/L (10-20); BUN (Urea Nitrogen) 53 mg/dL (7.0-18.7); Bilirubin, Total 0.2 mg/dL (0.3-1.2); Calc. Creatinine Clearance 0 mL/min (70-130); Calcium 8.8 mg/dL (7.8-10.44); Carbon Dioxide 21 mmol/L (22-29); Chloride 98 mmol/L (98-107); Globulin 4.4 g/dL (2.4-3.5); Glucose 590 mg/dL (70-105); Magnesium 2.2 mg/dL (1.6-2.6); Potassium 4.2 mmol/L (3.5-5.1); Sodium 137 mmol/L (136-145)
[2025-05-05 06:36] LABS: Bacteria/HPF None Seen HPF (None Seen); CAUTI Indications for Culture Alt mental st,lethar; Glucose, Urine (Dipstick) Greater than 1000 mg/dL (Negative); Leukocyte 500 Leu/uL (Negative); Protein, Urine (Dipstick) 300 mg/dL (Neg-Trace); RBC/HPF None Seen HPF (0-3); Specific Gravity, Urine 1.016 (1.002-1.036); WBC/HPF 0-3 HPF (0-3)
[2025-05-05 06:39] LABS: Urine Culture Reflex No No
[2025-05-05] MEDS ORDERED: Ondansetron PF 4 MG/2 ML Vial ONE (06:41)
[2025-05-05 07:54] LABS: HBSAB Concentration 42.75 mIU/mL; Hep B Core Total Ab NONREACTIVE (NonReactive); Hep B Core Total Index 0.09 S/CO (0-0.79); Hep B Surf Ag NONREACTIVE S/CO (NonReactive); Hep C IgG Ab NONREACTIVE S/CO (NonReactive); Hep C Index 0.11 S/CO (0-0.79)
== END 2025-05-05 15:10 | disposition home or self-care (01) ==
LOC: ERS 05:07
DX: I12.0 Hypertensive chronic kidney disease with stage 5 chronic kidney disease or end stage renal disease (principal); E11.22 Type 2 diabetes mellitus with diabetic chronic kidney disease; N18.6 End stage renal disease; E11.65 Type 2 diabetes mellitus with hyperglycemia; Z99.2 Dependence on renal dialysis
CPT/HCPCS: 36416; 80053; 81001; 82010; 83735; 84484; 85025; 86704; 86706; 86803; 87340; 96374; 96375; J1815; J2405

== ENCOUNTER 2025-05-07 09:55 | Emergency (ER) | payer BC ==
[2025-05-07 11:15] LABS: #Basophils 0.08 10x3/uL (0.0-0.2); #Eosinophils 0.03 10x3/uL (0.0-0.7); #Monocytes 1.14 10x3/uL (0.11-0.59); #Neutrophils 16.73 10x3/uL (1.40-6.50); %Basophils 0.4 % (0.0-1.0); %Eosinophils 0.2 % (0.0-10.0); %Lymphocytes 5.9 % (21.0-51.0); %Monocytes 5.9 % (0.0-10.0); %Neutrophils 86.4 % (42.0-75.0); Hematocrit 35.6 % (36.0-47.0); Hemoglobin 10.8 g/dL (12.0-16.0); Mean Corpuscular Hemoglobin 24.7 pg (27.0-31.0); Mean Corpuscular Volume 81.3 fL (78.0-98.0); Platelet Count 256 10x3/uL (130-400); Red Blood Cell (RBC) Count 4.38 mill/uL (4.20-5.40); White Blood Cell (WBC) Count 19.37 10x3/uL (4.8-10.8)
[2025-05-07 11:24] LABS: ALT (SGPT) Less than 7 U/L (Less than 34); AST (SGOT) 18 U/L (11-34); Albumin 3.4 g/dL (3.1-4.5); Anion Gap 18 mmol/L (10-20); BUN (Urea Nitrogen) 30 mg/dL (7.0-18.7); Bilirubin, Total 0.3 mg/dL (0.3-1.2); Calc. Creatinine Clearance 0 mL/min (70-130); Calcium 9.1 mg/dL (7.8-10.44); Carbon Dioxide 29 mmol/L (22-29); Chloride 95 mmol/L (98-107); Globulin 4.8 g/dL (2.4-3.5); Glucose 293 mg/dL (70-105); Potassium 3.2 mmol/L (3.5-5.1); Sodium 139 mmol/L (136-145)
[2025-05-07 11:33] LABS: Alkaline Phosphatase 95 U/L (40-110)
== END 2025-05-07 17:40 | disposition home or self-care (01) ==
LOC: ERS 09:55
DX: K52.9 Noninfective gastroenteritis and colitis, unspecified (principal); E86.0 Dehydration; I12.0 Hypertensive chronic kidney disease with stage 5 chronic kidney disease or end stage renal disease; E11.22 Type 2 diabetes mellitus with diabetic chronic kidney disease; B20 Human immunodeficiency virus [HIV] disease; N18.6 End stage renal disease; Z99.2 Dependence on renal dialysis; Z79.4 Long term (current) use of insulin; Z55.6 Problems related to health literacy; Z79.899 Other long term (current) drug therapy
CPT/HCPCS: 51701; 71045; 74176; 80053; 85025; 87428; 93005; 96360; 96361